=== PATIENT | female | born 1995 | race Caucasian/White ===

== ENCOUNTER 2016-09-10 09:32 | Emergency (ER) | payer OTHER ==
[2016-09-10] MEDS ORDERED: Ketorolac 30 MG/ML SDV IVPUSH ONE (09:37)
[2016-09-10] MEDS ORDERED: Ondansetron 4 MG/2 ML SDV IVPUSH ONE (09:37)
[2016-09-10] MEDS ORDERED: Sodium Chloride 0.9% 1,000 ML IV ONE (09:37)
--- NOTE | 2016-09-10 09:40 | EDM.PDOC ---
ED HPI GENERAL MEDICAL PROBLEM - General Chief Complaint: Abdominal Pain Stated Complaint: ABDOMINAL PAIN Time Seen by Provider: 09/10/16 09:36 - History of Present Illness INITIAL COMMENTS - FREE TEXT/NARRATIVE: HISTORY AND PHYSICAL: History of present illness: Patient's 21-year-old white female percents with the concern of acute right lower quadrant abdominal pain she states she was fine until this morning when she awoke with this pain she had some mild nausea she denies fever chills vaginal discharge irregular bleeding urinary symptoms or other complaints she also denies trauma denies history of urolithiasis Review of systems: As per history of present illness and below otherwise all systems reviewed and negative. Past medical history: As per history of present illness and as reviewed below otherwise noncontributory. Surgical history: As per history of present illness and as reviewed below otherwise noncontributory. Social history: No reported history of drug or alcohol abuse. Family history: As per history of present illness and as reviewed below otherwise noncontributory. Physical exam: HEENT: Atraumatic, normocephalic, pupils reactive, negative for conjunctival pallor or scleral icterus, mucous membranes moist, throat clear, neck supple, nontender, trachea midline. Lungs: Clear to auscultation, breath sounds equal bilaterally, chest nontender. Heart: S1S2, regular, negative for clicks, rubs, or JVD. Abdomen: Soft, nondistended, tenderness to palpation in right lower quadrant Negative for masses or hepatosplenomegaly. Negative for costovertebral tenderness. Pelvis: Stable nontender. Genitourinary: Deferred. Rectal: Deferred. Extremities: Atraumatic, negative for cords or calf pain. Neurovascular unremarkable. Neuro: Awake, alert, oriented. Cranial nerves II through XII unremarkable. Cerebellum unremarkable. Motor and sensory unremarkable throughout. Exam nonfocal. Diagnostics: CBC CMP UA hCG pelvic ultrasound Therapeutics: Normal saline 1 L bolus Zofran 4 mg IV Toradol 30 mg IV Impression: #1 right-sided abdominal pain Definitive disposition and diagnosis as appropriate pending reevaluation and review of above. - Related Data Allergies Allergy/AdvReac Type Severity Reaction Status Date / Time No Known Allergies Allergy Verified 09/10/16 09:35 Home Meds: Home Meds . [No Known Home Meds] 09/10/16 [History] ED ROS GENERAL - Review of Systems Review Of Systems: ROS reveals no pertinent complaints other than HPI. ED EXAM, GENERAL - Physical Exam Exam: See Below (See dictation) Course - Vital Signs Last Recorded V/S: Last Vital Signs Temp 36.6 C 09/10/16 09:37 Pulse 80 09/10/16 11:01 Resp 16 09/10/16 11:01 BP 115/77 09/10/16 11:01 Pulse Ox 97 09/10/16 11:01 - Orders/Labs/Meds Orders: Active Orders 24 hr Category Date Time Status Abdomen Pelvis wo Cont [CT] Stat Exams 09/10/16 11:34 Stop Req Pelvis Non OB Comp [US] Stat Exams 09/10/16 09:37 Taken Labs: Laboratory Tests 09/10/16 09/10/16 09/10/16 Range/Units 09:45 10:03 10:03 WBC 7.42 (4.0-11.0) K/uL RBC 4.63 (4.30-5.90) M/uL Hgb 13.1 (12.0-16.0) g/dL Hct 39.6 (36.0-46.0) % MCV 85.5 (80.0-98.0) fL MCH 28.3 (27.0-32.0) pg MCHC 33.1 (31.0-37.0) g/dL RDW Std Deviation 40.4 (28.0-62.0) fl RDW Coeff of Aishwarya 13 (11.0-15.0) % Plt Count 207 (150-400) K/uL MPV 10.30 (7.40-12.00) fL Neut % (Auto) 66.1 (48.0-80.0) % Lymph % (Auto) 26.5 (16.0-40.0) % [place]wey % (Auto) 5.8 (0.0-15.0) % Eos % (Auto) 1.3 (0.0-7.0) % Baso % (Auto) 0.3 (0.0-1.5) % Neut # (Auto) 4.9 (1.4-5.7) K/uL Lymph # (Auto) 2.0 (0.6-2.4) K/uL [place] # (Auto) 0.4 (0.0-0.8) K/uL Eos # (Auto) 0.1 (0.0-0.7) K/uL Baso # (Auto) 0.0 (0.0-0.1) K/uL Nucleated RBC % 0.0 /100WBC Nucleated RBCs # 0 K/uL Sodium 138 (136-146) mmol/L Potassium 4.1 (3.5-5.1) mmol/L Chloride 106 (98-110) mmol/L Carbon Dioxide 23 (21-31) mmol/L BUN 14 (6.0-23.0) mg/dL Creatinine 0.7 (0.6-1.5) mg/dL Est Cr Clr Drug Dosing 99.70 mL/min Estimated GFR (MDRD) > 60.0 ml/min Glucose 107 (60-110) mg/dL Calcium 8.9 (8.8-10.8) mg/dL Total Bilirubin 0.5 (0.1-1.5) mg/dL AST 16 (5-40) IU/L ALT 13 (8-54) IU/L Alkaline Phosphatase 78 (40-150) Total Protein 6.9 (6.0-8.0) g/dL Albumin 4.2 (3.5-5.0) g/dL Globulin 2.7 (2.0-3.5) g/dL Albumin/Globulin Ratio 1.6 (1.3-2.8) HCG, Qual (NEG) Urine Color YELLOW Urine Appearance SLT CLOUDY Urine pH 6.0 (5.0-8.0) Ur Specific [place] 1.020 (1.001-1.035) Urine Protein NEGATIVE (NEGATIVE) mg/dL Urine Glucose (UA) NEGATIVE (NEGATIVE) mg/dL Urine Ketones NEGATIVE (NEGATIVE) mg/dL Urine Occult Blood TRACE-LYSED (NEGATIVE) Urine Nitrite NEGATIVE (NEGATIVE) Urine Bilirubin NEGATIVE (NEGATIVE) Urine Urobilinogen 0.2 (<2.0) EU/dL Ur Leukocyte Esterase NEGATIVE (NEGATIVE) Urine RBC 0-1 (0-2/HPF) Urine WBC 0-2 (0-5/HPF) Ur Epithelial Cells MODERATE (NONE-FEW) Urine Bacteria FEW (NEGATIVE) 09/10/16 Range/Units 10:03 WBC (4.0-11.0) K/uL RBC (4.30-5.90) M/uL Hgb (12.0-16.0) g/dL Hct (36.0-46.0) % MCV (80.0-98.0) fL MCH (27.0-32.0) pg MCHC (31.0-37.0) g/dL RDW Std Deviation (28.0-62.0) fl RDW Coeff of Aishwarya (11.0-15.0) % Plt Count (150-400) K/uL MPV (7.40-12.00) fL Neut % (Auto) (48.0-80.0) % Lymph % (Auto) (16.0-40.0) % [place] % (Auto) (0.0-15.0) % Eos % (Auto) (0.0-7.0) % Baso % (Auto) (0.0-1.5) % Neut # (Auto) (1.4-5.7) K/uL Lymph # (Auto) (0.6-2.4) K/uL [place] # (Auto) (0.0-0.8) K/uL Eos # (Auto) (0.0-0.7) K/uL Baso # (Auto) (0.0-0.1) K/uL Nucleated RBC % /100WBC Nucleated RBCs # K/uL Sodium (136-146) mmol/L Potassium (3.5-5.1) mmol/L Chloride (98-110) mmol/L Carbon Dioxide (21-31) mmol/L BUN (6.0-23.0) mg/dL Creatinine (0.6-1.5) mg/dL Est Cr Clr Drug Dosing mL/min Estimated GFR (MDRD) ml/min Glucose (60-110) mg/dL Calcium (8.8-10.8) mg/dL Total Bilirubin (0.1-1.5) mg/dL AST (5-40) IU/L ALT (8-54) IU/L Alkaline Phosphatase (40-150) Total Protein (6.0-8.0) g/dL Albumin (3.5-5.0) g/dL Globulin (2.0-3.5) g/dL Albumin/Globulin Ratio (1.3-2.8) HCG, Qual NEGATIVE (NEG) Urine Color Urine Appearance Urine pH (5.0-8.0) Ur Specific [place] (1.001-1.035) Urine Protein (NEGATIVE) mg/dL Urine Glucose (UA) (NEGATIVE) mg/dL Urine Ketones (NEGATIVE) mg/dL Urine Occult Blood (NEGATIVE) Urine Nitrite (NEGATIVE) Urine Bilirubin (NEGATIVE) Urine Urobilinogen (<2.0) EU/dL Ur Leukocyte Esterase (NEGATIVE) Urine RBC (0-2/HPF) Urine WBC (0-5/HPF) Ur Epithelial Cells (NONE-FEW) Urine Bacteria (NEGATIVE) Meds: Medications Discontinued Medications Generic Name Dose Route Start Last Admin Trade Name Freq PRN Reason Stop Dose Admin Sodium Chloride 1,000 mls @ 999 mls/hr 09/10/16 09:37 09/10/16 10:00 Normal Saline IV 09/10/16 10:37 999 mls/hr STAT ONE Administration Ketorolac Tromethamine 30 mg 09/10/16 09:37 09/10/16 09:58 Toradol IVPUSH 09/10/16 09:38 30 mg ONETIME ONE Administration Ondansetron HCl 4 mg 09/10/16 09:37 09/10/16 09:56 Zofran IVPUSH 09/10/16 09:38 4 mg ONETIME ONE Administration Departure - Departure Time of Disposition: 11:41 Disposition: Home, Self-Care 01 Condition: good Clinical Impression: Ovarian cyst Referrals: PCP,None [Primary Care Provider] - Forms: ED Department Discharge Additional Instructions: The following information is given to patients seen in the emergency department who are being discharged to home. This information is to outline your options for follow-up care. We provide all patients seen in our emergency department with a follow-up referral. The need for follow-up, as well as the timing and circumstances, are variable depending upon the specifics of your emergency department visit. If you don't have a primary care physician on staff, we will provide you with a referral. We always advise you to contact your personal physician following an emergency department visit to inform them of the circumstance of the visit and for follow-up with them and/or the need for any referrals to a consulting specialist. The emergency department will also refer you to a specialist when appropriate. This referral assures that you have the opportunity for followup care with a specialist. All of these measure are taken in an effort to provide you with optimal care, which includes your followup. Under all circumstances we always encourage you to contact your private physician who remains a resource for coordinating your care. When calling for followup care, please make the office aware that this follow-up is from your recent emergency room visit. If for any reason you are refused follow-up, please contact the [facility] emergency department at and asked to speak to the emergency department charge nurse. [place] as prescribed followup primary medical doctor/RECOVERY UNIT OPERATOR in one to 2 days return as needed as discussed - My Orders Last 24 Hours: My Active Orders 09/10/16 09:37 Pelvis Non OB Comp [US] Stat 09/10/16 11:34 Abdomen Pelvis wo Cont [CT] Stat - Assessment/Plan Last 24 Hours: My Active Orders 09/10/16 09:37 Pelvis Non OB Comp [US] Stat 09/10/16 11:34 Abdomen Pelvis wo Cont [CT] Stat
[2016-09-10 10:34] LABS: CHLORIDE,CL 106 mmol/L (98-110); SODIUM,NA 138 mmol/L (136-146)
[2016-09-10 12:02] VITALS: BP 111/67
--- NOTE | 2016-09-11 10:49 | US ---
EXAM DATE: 09/10/16 PATIENT'S AGE: 21 Patient: BHARGAV COCHRAN Facility: [place], [place] Site . Site : 1995 Study: US Pelvis [id number]/23/2017 11:38:28 AM Ordering Physician: Kota Mcknight Final Report: CLINICAL HISTORY: Severe sharp pain right side of pelvis. TECHNIQUE: Real time, lundberg scale images were acquired of the pelvis using a transvaginal approach. Color Doppler analysis was performed of the ovaries. FINDINGS: Uterus measures 8 x 4.6 x 2.8 cm endometrial stripe measures 9 millimeters. Tiny amount of fluid in the endocervical canal. Right ovary measures 5.1 x 2.3 x 2.9 cm. Left ovary measures 2.2 x 1.9 x 4.3 centimeters. Normal all arterial venous blood flow was demonstrated within the ovaries. No adnexal mass or free fluid seen. IMPRESSION: Unremarkable pelvic ultrasound. Normal appearance of both ovaries with normal blood flow. Dictated by Sasha Garzon MD @ Sep 10 2016 11:52AM (Electronic Signature) Report Signed by Proxy and Original Signed Document filed in the Medical Record. [facility]OSPITALAlberto
== END 2016-09-10 11:53 | disposition home or self-care (01) ==
LOC: MW.ED 09:32
DX: N83.209 Unspecified ovarian cyst, unspecified side (principal)
CPT/HCPCS: 36415; 76856; 80053; 81001; 84703; 85025; 96361; 96374; 96375; 99284; J1885; J2405; J7040

== ENCOUNTER → 2016-10-03 | Outpatient (CLI) | payer OTHER | LOC: MW.CHOBGYN 16:52 | PROVIDERS: ATTEND Nurse Practitioner Women's Health | DX: R10.9 Unspecified abdominal pain (principal) | CPT/HCPCS: 36415; 85025 ==

== ENCOUNTER 2019-03-17 15:21 | Emergency (ER) | payer SELFPAY ==
--- NOTE | 2019-03-17 16:12 | EDM.PDOC ---
ED HPI GENERAL MEDICAL PROBLEM - General Chief Complaint: Genitourinary Problem Stated Complaint: UTI Time Seen by Provider: 03/17/19 16:08 Source of Information: Reports: Patient History Limitations: Reports: No Limitations - History of Present Illness INITIAL COMMENTS - FREE TEXT/NARRATIVE: HISTORY AND PHYSICAL: History of present illness: Patient is a 23-year-old female presents to the ED with complaint of UTI. She states she was seen in the clinic 2 weeks ago and prescribed macrobid. She states she had taken some of it but went on vacation and did not finish the whole course. She states she is having burning with urination and right low back pain. She denies fevers, chills, nausea, vomiting. Review of systems: As per history of present illness and below otherwise all systems reviewed and negative. Past medical history: As per history of present illness and as reviewed below otherwise noncontributory. Surgical history: As per history of present illness and as reviewed below otherwise noncontributory. Social history: No reported history of drug or alcohol abuse. Family history: As per history of present illness and as reviewed below otherwise noncontributory. Physical exam: General: Patient sitting comfortably in no acute distress and nontoxic appearing HEENT: Atraumatic, normocephalic, pupils reactive, negative for conjunctival pallor or scleral icterus, mucous membranes moist, throat clear, neck supple, nontender, trachea midline. No meningeal signs. Lungs: Clear to auscultation, breath sounds equal bilaterally, chest nontender. Heart: S1S2, regular, negative for clicks, rubs, or overt murmur. Abdomen: Soft, nondistended, nontender. Negative for masses or hepatosplenomegaly. Negative for costovertebral tenderness. No rigidity, rebound , guarding. Pelvis: Stable nontender. Genitourinary: Deferred. Rectal: Deferred. Extremities: Atraumatic, negative for cords or calf pain. Neurovascular unremarkable. Neuro: Awake, alert, oriented. Cranial nerves II through XII unremarkable. Cerebellum unremarkable. Motor and sensory unremarkable throughout. Exam nonfocal. Notes: Diagnostics: UTI Therapeutics: 1g Rocephin IM Prescriptions: Ciprofloxacin Impression: UTI Plan: Drink plenty of fluids and take antibiotic as directed. Follow up with primary care provider Return to ED as needed as discussed Definitive disposition and diagnosis as appropriate pending reevaluation and review of above. bladder Pain Score (Numeric/FACES): 3 - Related Data Allergies Allergy/AdvReac Type Severity Reaction Status Date / Time benzoyl peroxide Allergy Rash Verified 03/17/19 16:11 lactose Allergy Abdominal Verified 03/17/19 16:11 Pain Latex, Natural Rubber Allergy Rash Verified 03/17/19 16:11 Home Meds: Home Meds Cholecalciferol (Vitamin D3) [Vitamin D] 2,000 unit PO DAILY 03/17/19 [History] Ciprofloxacin [Ciprofloxacin HCl] 500 mg PO BID 10 Days #20 tab 03/17/19 [Rx] Multivitamin [Multivitamins] 1 ea PO DAILY 03/17/19 [History] Past Medical History - Past Health History Medical/Surgical History: Denies Medical/Surgical History Social & Family History - Family History Family Medical History: Noncontributory - Caffeine Use Caffeine Use: Reports: Coffee, Tea ED ROS GENERAL - Review of Systems Review Of Systems: ROS reveals no pertinent complaints other than HPI. ED EXAM, RENAL/ - Physical Exam Exam: See Below (see dictation) Course - Vital Signs Last Recorded V/S: Last Vital Signs Temp 97.8 F 03/17/19 16:07 Pulse 89 03/17/19 16:07 Resp 16 03/17/19 16:07 BP 144/73 H 03/17/19 16:07 Pulse Ox 99 03/17/19 16:07 - Orders/Labs/Meds Orders: Active Orders 24 hr Category Date Time Status CULTURE URINE [RM] Stat Lab 03/17/19 16:05 Received Labs: Laboratory Tests 03/17/19 Range/Units 16:05 Urine Color YELLOW Urine Appearance SLT CLOUDY Urine pH 6.0 (5.0-8.0) Ur Specific [place] 1.025 (1.001-1.035) Urine Protein NEGATIVE (NEGATIVE) mg/dL Urine Glucose (UA) NEGATIVE (NEGATIVE) mg/dL Urine Ketones NEGATIVE (NEGATIVE) mg/dL Urine Occult Blood TRACE-INTACT H (NEGATIVE) Urine Nitrite POSITIVE H (NEGATIVE) Urine Bilirubin NEGATIVE (NEGATIVE) Urine Urobilinogen 0.2 (<2.0) EU/dL Ur Leukocyte Esterase MODERATE H (NEGATIVE) Urine RBC 0-3 (0-2/HPF) Urine WBC 3-6 (0-5/HPF) Ur Epithelial Cells MODERATE (NONE-FEW) Urine Bacteria 3+ H (NEGATIVE) Urine Mucus MODERATE (NONE-MOD) Meds: Medications Discontinued Medications Generic Name Dose Route Start Last Admin Trade Name Markus PRN Reason Stop Dose Admin Ceftriaxone Sodium 1 gm 03/17/19 16:26 Rocephin IM 03/17/19 16:27 ONETIME ONE Departure - Departure Time of Disposition: 16:27 Disposition: Home, Self-Care 01 Condition: Good Clinical Impression: UTI (urinary tract infection) - Discharge Information Prescriptions: Ciprofloxacin [Ciprofloxacin HCl] 500 mg PO BID 10 Days #20 tab Referrals: Kevin Shipley MD [Primary Care Provider] - Forms: ED Department Discharge Additional Instructions: The following information is given to patients seen in the emergency department who are being discharged to home. This information is to outline your options for follow-up care. We provide all patients seen in our emergency department with a follow-up referral. The need for follow-up, as well as the timing and circumstances, are variable depending upon the specifics of your emergency department visit. If you don't have a primary care physician on staff, we will provide you with a referral. We always advise you to contact your personal physician following an emergency department visit to inform them of the circumstance of the visit and for follow-up with them and/or the need for any referrals to a consulting specialist. The emergency department will also refer you to a specialist when appropriate. This referral assures that you have the opportunity for follow-up care with a specialist. All of these measure are taken in an effort to provide you with optimal care, which includes your follow-up. Under all circumstances we always encourage you to contact your private physician who remains a resource for coordinating your care. When calling for follow-up care, please make the office aware that this follow-up is from your recent emergency room visit. If for any reason you are refused follow-up, please contact the [facility] Emergency Department at and asked to speak to the emergency department charge nurse. [facility] [address] [place] [id number] [id number] Drink plenty of fluids and take antibiotic as directed. Follow up with primary care provider Return to ED as needed as discussed
[2019-03-17] MEDS ORDERED: cefTRIAXone 1 GM Vial IM ONE (16:26)
[2019-03-17 17:19] VITALS: BP 108/70; PULSE 72
== END 2019-03-17 17:19 | disposition home or self-care (01) ==
LOC: MW.ED 15:21
DX: N39.0 Urinary tract infection, site not specified (principal); Z88.8 Allergy status to other drugs, medicaments and biological substances; Z91.040 Latex allergy status
CPT/HCPCS: 81001; 87086; 96372; 99283; J0696; 87088; 87186

== ENCOUNTER 2023-04-24 19:32 | Emergency (ER) | payer SELFPAY ==
[2023-04-24 21:42] LABS: CORONAVIRUS COVID-19 NAA NEGATIVE (NEGATIVE); INFLUENZA A NAA NEGATIVE (NEGATIVE); INFLUENZA B NAA NEGATIVE (NEGATIVE)
[2023-04-24] MEDS ORDERED: Sodium Chloride 0.9% 10 ML Syringe FLUSH PRN (21:46)
[2023-04-24] MEDS ORDERED: Sodium Chloride 0.9% 2.5 ML Syringe FLUSH PRN (21:46)
[2023-04-24] MEDS ORDERED: Ondansetron 4 MG/2 ML SDV IVPUSH STA (21:47)
[2023-04-24] MEDS ORDERED: Sodium Chloride 0.9% 1,000 ML IV STA (21:47)
[2023-04-24] MEDS ORDERED: Ondansetron 4 MG/2 ML SDV IVPUSH ONE (21:48)
[2023-04-24 22:02] LABS: HEMATOCRIT 43.3 % (37.0-47.0); HEMOGLOBIN 14.6 g/dL (12.0-16.0); MEAN CORPUSCULAR HEMOGLOBIN 28.1 pg (28.0-32.0); MEAN CORPUSCULAR HGB CONC 33.7 g/dL (32.0-36.0); MEAN CORPUSCULAR VOLUME 83.4 fL (83.0-99.0); MEAN PLATELET VOLUME 9.6 fL (9.4-12.3); PLATELET COUNT,PLT 230 K/uL (150-400); RED BLOOD CELL COUNT 5.19 M/uL (4.10-5.30); WHITE BLOOD CELL COUNT,WBC 9.78 K/uL (3.9-11.3)
[2023-04-24 22:04] LABS: APPEARANCE,URINE SLT CLOUDY; BILIRUBIN,URINE NEGATIVE (NEGATIVE); COLOR,URINE YELLOW; GLUCOSE,URINE NEGATIVE (NEGATIVE); KETONES,URINE TRACE mg/dL (NEGATIVE); LEUKOCYTE ESTERASE,URINE TRACE (NEGATIVE); NITRITE,URINE NEGATIVE (NEGATIVE); OCCULT BLOOD,URINE TRACE-INTACT (NEGATIVE); PROTEIN,URINE TRACE mg/dL (NEGATIVE); UROBILINOGEN,URINE 0.2 EU/dL (<2.0)
[2023-04-24] MEDS ORDERED: Acetaminophen 500 MG Tab PO ONE (22:06)
[2023-04-24] MEDS ORDERED: Loperamide 2 MG Cap PO STA (22:10)
[2023-04-24 22:11] LABS: BACTERIA,URINE 3+ (NEGATIVE); MUCUS,URINE LIGHT (NONE-MOD); SQUAMOUS EPITHELIAL CELLS,UR MODERATE
[2023-04-24 22:29] LABS: LYMPHOCYTES ABSOLUTE MAN 0.98 K/uL (1.00-4.80); LYMPHOCYTES PERCENT MAN 10 % (24-44); MONOCYTES ABSOLUTE MAN 0.39 K/uL (0.00-0.80); MONOCYTES PERCENT MAN 4 % (0-8); SEG NEUTROPHILS ABSOLUTE MAN 8.41 K/uL (1.80-7.70); SEG NEUTROPHILS PERCENT MAN 86 % (41-71)
[2023-04-24 22:32] LABS: A/G RATIO 0.9 (0.9-1.6); ALBUMIN 3.7 g/dL (3.4-5.0); BILIRUBIN TOTAL 0.4 mg/dL (0.2-1.0); CALCIUM 8.6 mg/dL (8.5-10.1); CREATININE 0.9 mg/dL (0.6-1.0); EST CRCL DRUG DOSING (CG) 73.6 mL/min; POTASSIUM,K 3.5 mmol/L (3.5-5.1); PROTEIN TOTAL,TP 7.7 g/dL (6.4-8.2)
[2023-04-25 00:21] VITALS: BP 100/56; PULSE 90
== END 2023-04-25 00:30 | disposition home or self-care (01) ==
LOC: MW.ED 19:32
DX: R11.2 Nausea with vomiting, unspecified (principal); R19.7 Diarrhea, unspecified; Z91.018 Allergy to other foods; Z91.040 Latex allergy status; Z88.2 Allergy status to sulfonamides; Z88.3 Allergy status to other anti-infective agents; Z20.822 Contact with and (suspected) exposure to COVID-19
CPT/HCPCS: 0240U; 36415; 80053; 81001; 81025; 83690; 83735; 85025; 87086; 96361; 96374; 99284; A9270; J2405; J3490; J7030; 87088; 87186

== ENCOUNTER 2023-11-09 12:20 | Emergency (ER) | payer BC, OTHER ==
[2023-11-09 12:39] LABS: APPEARANCE,URINE CLEAR; BILIRUBIN,URINE NEGATIVE (NEGATIVE); COLOR,URINE YELLOW; GLUCOSE,URINE NEGATIVE (NEGATIVE); KETONES,URINE NEGATIVE (NEGATIVE); LEUKOCYTE ESTERASE,URINE NEGATIVE (NEGATIVE); NITRITE,URINE NEGATIVE (NEGATIVE); OCCULT BLOOD,URINE SMALL (NEGATIVE); PROTEIN,URINE NEGATIVE (NEGATIVE); UROBILINOGEN,URINE 0.2 EU/dL (<2.0)
[2023-11-09 12:54] LABS: BACTERIA,URINE FEW (NEGATIVE); EPITHELIAL CELLS,URINE FEW (NONE-FEW); RBC,URINE 0-2 (0-2/HPF)
[2023-11-09] MEDS: Ondansetron 4 MG/2 ML SDV IVPUSH STA (12:56)
[2023-11-09] MEDS: Sodium Chloride 0.9% 2.5 ML Syringe FLUSH PRN (12:56)
[2023-11-09] MEDS: Ketorolac 30 MG/ML SDV IVPUSH STA (12:56)
[2023-11-09] MEDS: Sodium Chloride 0.9% 1,000 ML IV STA (12:56)
[2023-11-09] MEDS: Sodium Chloride 0.9% 10 ML Syringe FLUSH PRN (12:57)
[2023-11-09 13:08] LABS: BASOPHILS ABSOLUTE AUTO 0.05 K/uL (0.00-0.20); BASOPHILS PERCENT AUTO 0.6 % (0.0-1.0); EOSINOPHILS ABSOLUTE AUTO 0.11 K/uL (0.00-0.45); EOSINOPHILS PERCENT AUTO 1.3 % (0.0-6.0); HEMOGLOBIN 13.8 g/dL (12.0-16.0); IMMATURE GRAN ABSOLUTE AUTO 0.02 K/uL (0.00-0.05); IMMATURE GRAN PERCENT AUTO 0.2 % (0.0-0.4); LYMPHOCYTES ABSOLUTE AUTO 2.44 K/uL (1.00-4.80); LYMPHOCYTES PERCENT AUTO 29.1 % (24.0-44.0); MEAN CORPUSCULAR HEMOGLOBIN 28.3 pg (28.0-32.0); MEAN CORPUSCULAR HGB CONC 33.7 g/dL (32.0-36.0); MEAN PLATELET VOLUME 9.5 fL (9.4-12.3); NEUTROPHILS ABSOLUTE AUTO 5.27 K/uL (1.80-7.70); NEUTROPHILS PERCENT AUTO 62.8 % (41.0-71.0); PLATELET COUNT,PLT 291 K/uL (150-400); RED BLOOD CELL COUNT 4.88 M/uL (4.10-5.30); WHITE BLOOD CELL COUNT,WBC 8.39 K/uL (3.9-11.3)
[2023-11-09 13:30] LABS: A/G RATIO 0.9 (0.9-1.6); ALBUMIN 3.7 g/dL (3.4-5.0); BILIRUBIN TOTAL 0.6 mg/dL (0.2-1.0); CALCIUM 8.9 mg/dL (8.5-10.1); CARBON DIOXIDE,CO2 25.7 mmol/L (21.0-32.0); CREATININE 0.8 mg/dL (0.6-1.0); EST CRCL DRUG DOSING (CG) 82.06 mL/min; POTASSIUM,K 3.8 mmol/L (3.5-5.1); PROTEIN TOTAL,TP 7.7 g/dL (6.4-8.2)
[2023-11-09 15:58] VITALS: BP 122/75; PULSE 86
== END 2023-11-09 15:57 | disposition home or self-care (01) ==
LOC: MW.ED 12:20
DX: N20.0 Calculus of kidney (principal); Z75.8 Other problems related to medical facilities and other health care; Z88.8 Allergy status to other drugs, medicaments and biological substances; Z91.040 Latex allergy status; Z88.2 Allergy status to sulfonamides; Z91.011 Allergy to milk products; Z79.899 Other long term (current) drug therapy
CPT/HCPCS: 36415; 74176; 80053; 81001; 83690; 84703; 85025; 96361; 96374; 96375; 99284; J1885; J2405; J3490; J7030